=== PATIENT | female | born 1975 | race Caucasian/White ===

== ENCOUNTER 2021-12-23 11:01 | Emergency (ER) | payer MEDICARE ==
[~2021-12-23] VITALS: Ht 160 cm; Wt 56.8 kg
[2021-12-23 13:17] VITALS: BP 121/70
== END 2021-12-23 13:30 | disposition home or self-care (01) ==
LOC: ED 11:01
DX: S90.32XA Contusion of left foot, initial encounter (principal); G40.909 Epilepsy, unspecified, not intractable, without status epilepticus; F17.210 Nicotine dependence, cigarettes, uncomplicated; W20.8XXA Other cause of strike by thrown, projected or falling object, initial encounter; Y93.89 Activity, other specified; Y92.009 Unspecified place in unspecified non-institutional (private) residence as the place of occurrence of the external cause

== ENCOUNTER 2022-02-19 18:59 | Emergency (ER) | payer MEDICARE ==
[~2022-02-19] VITALS: Ht 160 cm; Wt 53.0 kg
[2022-02-19] MEDS ORDERED: LAMICTAL100 M1 PO (20:09)
[2022-02-19] MEDS ORDERED: LYRICA50 MG PO (20:10)
[2022-02-19] MEDS ORDERED: KEPPRA500 M2 PO (20:10)
[2022-02-19] MEDS ORDERED: LORTAB 1010 MG PO (20:11)
[2022-02-19 21:47] VITALS: BP 131/69
== END 2022-02-19 21:47 | disposition home or self-care (01) ==
LOC: ED 18:59
DX: S61.214A Laceration without foreign body of right ring finger without damage to nail, initial encounter (principal); S62.614A Displaced fracture of proximal phalanx of right ring finger, initial encounter for closed fracture; X58.XXXA Exposure to other specified factors, initial encounter

== ENCOUNTER 2022-10-21 16:28 | Emergency (ER) | payer MEDICARE ==
[2022-10-21] VITALS (12 sets, daily range): BP systolic 104–130; BP diastolic 63–79
[~2022-10-21] VITALS: Ht 160 cm; Wt 58.3 kg
[~2022-10-21 16:28] MED LIST: KEPPRA500 M2 PO; LAMICTAL100 M1 PO; LORTAB 1010 MG PO; LYRICA50 MG PO
[2022-10-21] MEDS ORDERED: DICLOFENAC75 MG PO (16:39)
== END 2022-10-21 19:50 | disposition home or self-care (01) ==
LOC: ED 16:28
DX: S00.83XA Contusion of other part of head, initial encounter (principal); G40.909 Epilepsy, unspecified, not intractable, without status epilepticus; F17.200 Nicotine dependence, unspecified, uncomplicated; W54.1XXA Struck by dog, initial encounter; Y92.009 Unspecified place in unspecified non-institutional (private) residence as the place of occurrence of the external cause; Z79.891 Long term (current) use of opiate analgesic